=== PATIENT | male | born 1980 | race Caucasian/White ===

== ENCOUNTER 2017-11-06 12:09 | Emergency (ER) | payer SELFPAY ==
--- NOTE | 2017-11-06 12:42 | ED ---
Substance Abuse/Use - HPI Summary HPI Summary: This is marycruz Bianchi documenting for attending Dr. Kanika Daley This patient is a 37 year old M presenting to [facility] with a chief complaint of heroin OD since around 1130. Pt was given 8mg of nasal narcan at 1145. Prior to that pt was unresponsive with agonal breathing. Pt is alert an oriented upon arrival to ED. Pt endorses using heroin, but denies using other substances. Pt denies PMHx. Pt claims he was clean previously and relapsed today; his last detox was 1 month ago. Pt endorses fatigue, denies pain, SI, HI. - History Of Current Complaint Chief Complaint: EDSubstanceAbuse Stated Complaint: OVERDOSE Time Seen by Provider: 11/06/17 12:16 Hx Obtained From: Patient, EMS Onset/Duration of Drug/ETOH Abuse: Hours Ingestion History: Type/Name Of Drug - heroin, Amount Ingested - 1 bag, Approximate Time Of Ingestion - 1130 Overdose Characteristics: IV Timing Of Abuse: Intermittent, Recent Cessation For A Period Of - 1 month prior to today Severity Initially: Severe Severity Currently: Mild Character: Lethargic Aggravating Factor(s): Therapy Non-compliance - rehab at [facility] Alleviating Factor(s): Nothing Associated Signs And Symptoms: Negative Related Hx: Drug/Alcohol Last Used @ - 1130, Possible Multi Drug Ingestion, Prior Drug Abuse Counseling/Admission - Allergies/Home Medications Allergies/Adverse Reactions: Allergies Allergy/AdvReac Type Severity Reaction Status Date / Time No Known Allergies Allergy Verified 11/06/17 12:18 Home Medications: Home Medications NK [No Home Medications Reported] 11/06/17 [History Confirmed 11/06/17] PMH/Surg Hx/FS Hx/Imm Hx Endocrine/Hematology History: Denies: Hx Sickle Cell Disease Cardiovascular History: Denies: Hx Myocardial Infarction Respiratory History: Denies: Hx Lung Cancer History: Denies: Hx Acute Renal Failure Musculoskeletal History: Denies: Hx Rheumatoid Arthritis Sensory History: Denies: Hx Legally Blind, Hx Deafness Opthamlomology History: Denies: Hx Legally Blind EENT History: Denies: Hx Deafness Neurological History: Denies: Hx CVA Psychiatric History: Reports: Hx Substance Abuse Infectious Disease History: Yes Infectious Disease History: Denies: Traveled Outside the [place] in Last 30 Days - Family History Known Family History: Negative: Blood Disorder - Social History Alcohol Use: None Hx Substance Use: Yes Substance Use Type: Reports: Heroin Hx Tobacco Use: Yes Smoking Status (MU): Current Every Day Smoker Review of Systems Positive: Fatigue. Negative: Fever Positive: no symptoms reported Negative: Other - Si, HI All Other Systems Reviewed And Are Negative: Yes Physical Exam - Summary Physical Exam Summary: Appearance: Well appearing, no pain distress, drowsy Skin: warm, dry, reflects adequate perfusion Head/face: normal Eyes: EOMI, MACARENA ENT: normal Neck: supple, non-tender Respiratory: CTA, breath sounds present Cardiovascular: RRR, pulses symmetrical Abdomen: non-tender, soft Bowel: present Musculoskeletal: normal, strength/ROM intact Neuro: normal, sensory motor intact, A&Ox3 Triage Information Reviewed: Yes Vital Signs On Initial Exam: Initial Vitals Temp Pulse Resp BP Pulse Ox 98.4 F 89 15 136/90 98 11/06/17 12:19 11/06/17 12:19 11/06/17 12:19 11/06/17 12:19 11/06/17 12:19 Vital Signs Reviewed: Yes Diagnostics - Vital Signs Vital Signs Temp Pulse Resp BP Pulse Ox 11/06/17 12:19 98.4 F 89 15 136/90 98 - Laboratory Result Diagrams: 11/06/17 12:38 11/06/17 12:38 Lab Statement: Any lab studies that have been ordered have been reviewed, and results considered in the medical decision making process. - EKG 1219 Cardiac Rate: NL - 87 EKG Rhythm: Sinus Rhythm ST Segment: Normal Ectopy: None EKG Interpretation: No acute changes. Re-Evaluation - Re-Evaluation First Eval Re-Evaluation Time: 15:10 Change: Improved Comment: Pt wants to leave, alert and oriented, walking around. Course/Dx - Course Course Of Treatment: A 37-year-old M presents to the ED with a CC of heroin OD at 1130. (+) fatigue. (-) SI, HI, pain, . IV heroin administration, was in recovery for "1 month" COMPENSATION AND BENEFITS ADVISOR. An EKG reveals normal sinus rythym of 87 BPM, no acute changes. In the ED course, pt was given . - Diagnoses Differential Diagnosis/HQI/PQRI: Positive: Alcohol Abuse, Anxiety, Drug Abuse Provider Diagnoses: Substance abuse Discharge - Sign-Out/Discharge Documenting (check all that apply): Patient Departure - discharge - Discharge Plan Condition: Stable Disposition: HOME Patient Education Materials: Polysubstance Abuse (ED) Referrals: [facility] [Provider Group] - 3 Days Additional Instructions: Return to the emergency department for new or worsening symptoms. - Billing Disposition and Condition Condition: STABLE Disposition: Home
[2017-11-06 12:50] LABS: ABS Basophils 0 10^3/ul (0-0.2); ABS Eosinophils 0.2 10^3/ul (0-0.6); ABS Lymphocytes 1.8 10^3/ul (1.0-4.8); ABS Monocytes 0.8 10^3/ul (0-0.8); ABS Neutrophils 9.1 10^3/ul (1.5-7.7); ABS Nucleated RBC 0 10^3/ul; Eosinophil % 1.9 % (0-6); Hematocrit 42 % (42-52); Hemoglobin 14.5 g/dl (14.0-18.0); Lymphocyte % 14.7 % (25-47); Mean Corpuscular HGB Conc 34 g/dl (31-36); Mean Corpuscular Hemoglobin 30 pg (27-31); Mean Corpuscular Volume 86 fL (80-94); Mean Platelet Volume 9.2 um3 (7.4-10.4); Nucleated Red Blood Cells % 0; Platelet Count 185 10^3/ul (150-450); Red Cell Distribution Width 14 % (10.5-15)
[2017-11-06 12:59] LABS: INR 0.89 (0.77-1.02)
[2017-11-06 13:07] LABS: EGFR Non-African American 85.1 (>60)
[2017-11-06] MEDS ORDERED: NS 0.9% 1000 ML* 2,000 ML IV ONE (13:48)
[2017-11-06 15:18] VITALS: BP 158/87
== END 2017-11-06 15:17 | disposition home or self-care (01) ==
LOC: ED 12:09
DX: F19.10 Other psychoactive substance abuse, uncomplicated (principal); R53.83 Other fatigue; F17.210 Nicotine dependence, cigarettes, uncomplicated
CPT/HCPCS: 36415; 80053; 82550; 84484; 85025; 85610; 85730; 93005; 96360; 99283